=== PATIENT | female | born 1970 | race Caucasian/White ===

== ENCOUNTER → 2016-08-26 | Outpatient (CLI) | payer OTHER ==
--- NOTE | 2016-08-26 12:45 | MA ---
Screening Digital Mammogram With iCAD Analysis Clinical Indications: Routine screening. Technique: Standard cephalocaudal and mediolateral oblique projections were obtained. This examinatio n was processed by the iCAD computer aided detection system. Comparison: June 2015, August 2013, May 2011. Breast density: Type B; Scattered fibroglandular densities. Findings: CAD was reviewed. There is equivocal developing architectural change in the central left br east. No suspicious microcalcifications are identified. The right breast is stable in appearance. Impression: Possible developing left breast architectural change requires further evaluation, BI-RADS 0. Recommendation: Spot compression assessment of the left breast with ultrasound suggested if the abnor mality persists on diagnostic evaluation. Counts [facility] will send a result letter to the patient. Negative mammography should not preclude additional workup of a clinically suspicious finding. The patient's information is entered into a reminder system with a target due date for her next mammo gram.
== END ==
LOC: BRMIMAGING 11:22
DX: Z12.31 Encounter for screening mammogram for malignant neoplasm of breast (principal)
CPT/HCPCS: G0202

== ENCOUNTER → 2016-09-09 | Outpatient (CLI) | payer OTHER ==
--- NOTE | 2016-09-09 10:12 | MA ---
Left Unilateral Digital Diagnostic Mammogram History: Possible architectural change on mammograms. Comparison: Mammograms through June 24, 2011. Technique: Spot compression CC and mediolateral oblique and true lateral views. Findings: Additional views demonstrate no residual dominant density or architectural distortion. Nicole st parenchyma in the area of interest appears stable since 2010 on today's views. Impression: BI-RADS 1: Negative. Recommendations: Routine mammogram in one year. Findings and recommendations were given to the julio t at the time of the study. [facility] will send a result letter to the patient.
== END ==
LOC: BRMIMAGING 09:14
DX: Z12.39 Encounter for other screening for malignant neoplasm of breast (principal); R92.2 Inconclusive mammogram

== ENCOUNTER → 2017-09-01 | Outpatient (CLI) | payer OTHER | LOC: BRMIMAGING 12:46 | PROVIDERS: ATTEND Nurse Practitioner Women's Health | DX: Z12.31 Encounter for screening mammogram for malignant neoplasm of breast (principal) ==

== ENCOUNTER → 2017-09-04 | Outpatient (CLI) | payer OTHER | LOC: FIMAGING 10:59 | PROVIDERS: ATTEND Nurse Practitioner Women's Health | DX: R92.8 Other abnormal and inconclusive findings on diagnostic imaging of breast (principal) ==